=== PATIENT | male | born 1980 | race African-American/Black ===

== ENCOUNTER 2019-03-14 16:33 | Emergency (ER) | payer OTHER ==
[~2019-03-14] VITALS: Ht 182.9 cm; Wt 72.6 kg
[2019-03-14 19:00] VITALS: BP 118/82
--- NOTE | 2019-03-15 08:48 | EKG ---
[place] [address] [facility] [place] [address] ELECTROCARDIOGRAM REPORT Name: JARRELL DECKERSTACIAMARY Room #: DEP HALEY Wilkins#: [id number] Admission: 03/14/19 Attend Phys: Discharge: 03/14/19 Date of : 80 Report #: [id number] THIS REPORT FOR: //name// [facility] ED Test Date: 2019-03-14 Test Time: 16:47:35 Pat Name: ALEENA DECKER Department: Room: Gender: Dryer Operator: : 1980 Requested By: Rinku Villareal Order Number: [id number] MD: Rupesh Pugh Measurements Intervals [place] Rate: 105 P: 71 WV: 199 QRS: 34 QRSD: 117 T: 53 QT: 358 QTc: 474 Interpretive Statements Sinus tachycardia Borderline prolonged [place] interval Possible anteroseptal infarct, age indeterminate No previous ECG available for comparison Electronically Signed On 03-15-2019 8:47:37 [employer]EARCH [employer]PERVIS[employer] by Rupesh Pugh [email or web address] <ELECTRONICALLY SIGNED> By: Rupesh Pugh MD, [facility] 03/15/19 [id number] Rupesh Pugh MD, FACC /EPI
== END 2019-03-14 19:00 | disposition home or self-care (01) ==
LOC: ER 16:33
DX: R06.00 Dyspnea, unspecified (principal); I10 Essential (primary) hypertension